=== PATIENT | male | born 1950 | race Caucasian/White ===

== ENCOUNTER 2018-12-24 08:21 | Day surgery (SDC) | payer MEDICARE, BC ==
[~2018-12-24 08:21] MED LIST: LIDOCAINE HCL 1% MPF 30 SOL ONE; PROPOFOL 500 MG/50 ML EMU IV ONE
[2018-12-24 10:09] VITALS: BP 138/81; PULSE 62; RESP 16; TEMP 98; O2SAT 95
== END 2018-12-24 10:38 | disposition home or self-care (01) | DRG 951 ==
LOC: SURG 08:21
PROVIDERS: ATTEND Surgery
DX: Z12.11 Encounter for screening for malignant neoplasm of colon (principal); K57.32 Diverticulitis of large intestine without perforation or abscess without bleeding; Z86.010 Personal history of colon polyps
CPT/HCPCS: J2001; J2704